=== PATIENT | male | born 1975 | race Caucasian/White ===

== ENCOUNTER 2019-04-30 07:06 | Emergency (ER) | payer OTHER ==
--- NOTE | 2019-04-30 08:11 | CR ---
[id number] RAD/RAD Elbow Left 3V Min EXAM: RAD Elbow Left 3V Min CLINICAL DATA: TRAUMA COMPARISON: NO PREVIOUS SIMILAR EXAM IS AVAILABLE. FINDINGS: A widely diastatic ulnar olecranon fracture is seen with articular involvement. IMPRESSION: DIASTATIC PROXIMAL ULNAR FRACTURE Deandre Blackwood MD 04/30/19 [id number] Thank you for allowing us to participate in the care of your patient.
--- NOTE | 2019-04-30 08:28 | EDM.PDOC ---
ED HPI GENERAL MEDICAL PROBLEM - General Chief Complaint: Upper Extremity Injury/Pain Stated Complaint: fell and hurt left elbow Time Seen by Provider: 04/30/19 08:13 Source of Information: Reports: Patient History Limitations: Reports: No Limitations - History of Present Illness INITIAL COMMENTS - FREE TEXT/NARRATIVE: Patient is a 44-year-old gentleman who presents to the emergency department this morning via private vehicle with a complaint of left elbow pain. Patient states just prior to presentation he slipped on ice landing on his left elbow. Patient denies head injury, loss of conscious, neck pain, shoulder pain, wrist pain, or back pain. 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 [No Known Home Meds] 04/30/19 [History] Past Medical History HEENT History: Reports: None Cardiovascular History: Reports: None Respiratory History: Reports: None Gastrointestinal History: Reports: None Genitourinary History: Reports: None Musculoskeletal History: Reports: None Neurological History: Reports: None Psychiatric History: Reports: None Endocrine/Metabolic History: Reports: None Hematologic History: Reports: None Immunologic History: Reports: None Oncologic (Cancer) History: Reports: None Dermatologic History: Reports: None - Past Surgical History Head Surgeries/Procedures: Reports: None HEENT Surgical History: Reports: None Cardiovascular Surgical History: Reports: None GI Surgical History: Reports: Hernia Repair/Other Male Surgical History: Reports: None Neurological Surgical History: Reports: None Musculoskeletal Surgical History: Reports: None Social & Family History - Tobacco Use Smoking Status *Q: Never Smoker Second Hand Smoke Exposure: No - Caffeine Use Caffeine Use: Reports: Soda - Alcohol Use Days Per Week of Alcohol Use: 1 Number of Drinks Per Day: 3 Total Drinks Per Week: 3 - Recreational Drug Use Recreational Drug Use: No Review of Systems - Review of Systems Review Of Systems: Comprehensive ROS is negative, except as noted in HPI. Constitutional: Reports: No Symptoms Eyes: Reports: No Symptoms Ears: Reports: No Symptoms Nose: Reports: No Symptoms Mouth/Throat: Reports: No Symptoms Respiratory: Reports: No Symptoms Cardiovascular: Reports: No Symptoms GI/Abdominal: Reports: No Symptoms Genitourinary: Reports: No Symptoms Musculoskeletal: Reports: Arm Pain (Left elbow) Skin: Reports: No Symptoms Neurological: Reports: No Symptoms Psychiatric: Reports: No Symptoms ED EXAM, GENERAL - Physical Exam Exam: See Below Exam Limited By: No Limitations General Appearance: Alert, WD/WN, No Apparent Distress Throat/Mouth: Normal Inspection, Normal Oropharynx, No Airway Compromise Head: Atraumatic, Normocephalic Neck: Normal Inspection, Supple, Non-Tender, Full Range of Motion Respiratory/Chest: No Respiratory Distress Back Exam: Normal Inspection, Full Range of Motion Extremities: Arm Pain (Left elbow posterior aspect with mild edema. No ecchymosis or obvious deformity noted. No shoulder or wrist involvement.) Neurological: Alert, Oriented, CN II-XII Intact, Normal Cognition, No Motor/ Sensory Deficits Psychiatric: Normal Affect, Normal Mood Skin Exam: Warm, Dry, Intact, Normal Color, No Rash ED TRAUMA EXTREMITY PROCEDURES - Splinting Left Upper Extremity Pre-Procedure NV Status: Normal Post-Procedure NV Status: Normal Splint Material: Fiberglass Splint Design: Posterior Applied & Form Fitted By: Provider Provider Post-Splint Application NV Check: NV Status Normal Complications: No Course - Vital Signs Last Recorded V/S: Last Vital Signs Temp 97.7 F 04/30/19 07:10 Pulse 86 04/30/19 07:10 Resp 18 04/30/19 07:10 BP 133/80 04/30/19 07:10 Pulse Ox 98 04/30/19 07:10 - Radiology Interpretation Free Text/Narrative:: Right elbow, proximal ulnar fracture - Re-Assessments/Exams Free Text/Narrative Re-Assessment/Exam: 04/30/19 08:28 Patient afebrile, vital signs stable, tolerated splinting procedure well. Discussed case with Dr. Tellez, orthopedic surgery at [facility]. He would like to see the patient in the [facility] tomorrow and then will set up surgical date later on in the week. Departure - Departure Time of Disposition: 08:31 Disposition: Home, Self-Care 01 Condition: Good Clinical Impression: Fracture of ulna Qualifiers: Encounter type: initial encounter Ulna location: proximal ulna Fracture type: closed Fracture morphology: unspecified fracture morphology Laterality: left Qualified Code(s): S52.002A - Unspecified fracture of upper end of left ulna, initial encounter for closed fracture - Discharge Information Instructions: Cast or Splint Care, Adult, [id number], Ulnar Fracture Referrals: PCP,None [Primary Care Provider] - Additional Instructions: Follow-up with Dr. Tellez, orthopedic surgeon at [facility] tomorrow. [address] [facility]. [phone] Sepsis Event Note - Evaluation Sepsis Screening Result: No Definite Risk - Focused Exam Vital Signs: Vital Signs Temp Pulse Resp BP Pulse Ox 04/30/19 07:10 97.7 F 86 18 133/80 98 Date Exam was Performed: 04/30/19 Time Exam was Performed: 08:15 - Assessment/Plan Assessment:: Left ulnar fracture Plan: Follow-up orthopedic tomorrow
[2019-04-30] MEDS ORDERED: Acetaminophen/oxyCODONE 325-5 MG Tab PO ONE (08:34)
== END 2019-04-30 08:50 | disposition home or self-care (01) ==
LOC: KA.ED 07:06
DX: S52.022A Displaced fracture of olecranon process without intraarticular extension of left ulna, initial encounter for closed fracture (principal); W00.0XXA Fall on same level due to ice and snow, initial encounter
CPT/HCPCS: 29105; 73080-LT; 99283-25

== ENCOUNTER 2024-06-17 09:06 | Emergency (ER) | payer BC ==
[2024-06-17 09:36] LABS: BASOPHILS ABSOLUTE AUTO 0.02 10^3/uL (0.00-0.10); BASOPHILS PERCENT AUTO 0.3 % (0.0-1.0); EOSINOPHILS ABSOLUTE AUTO 0.09 10^3/uL (0.10-0.30); EOSINOPHILS PERCENT AUTO 1.2 % (1.0-3.0); HEMOGLOBIN 15.5 g/dL (13.0-17.0); IMMATURE GRAN ABSOLUTE AUTO 0.02 10^3/uL (0.00-0.04); IMMATURE GRAN PERCENT AUTO 0.3 % (0.0-0.4); LYMPHOCYTES ABSOLUTE AUTO 1.21 10^3/uL (1.00-4.00); LYMPHOCYTES PERCENT AUTO 16.2 % (20.0-40.0); MEAN CORPUSCULAR HEMOGLOBIN 30.1 pg (27.0-31.0); MEAN CORPUSCULAR HGB CONC 34.4 g/dL (32.0-36.0); MEAN CORPUSCULAR VOLUME 87.4 fL (82.0-92.0); MEAN PLATELET VOLUME 8.6 fL (7.4-10.4); MONOCYTES ABSOLUTE AUTO 0.71 10^3/uL (0.10-0.80); MONOCYTES PERCENT AUTO 9.5 % (2.0-8.0); NEUTROPHILS ABSOLUTE AUTO 5.42 10^3/uL (2.50-7.00); NEUTROPHILS PERCENT AUTO 72.5 % (50.0-70.0); PLATELET COUNT,PLT 213 10^3/uL (150-400); RED BLOOD CELL COUNT 5.15 10^6/uL (4.50-6.00); RED CELL DISTRIBUTION WIDTH 12.2 % (11.5-14.5); WHITE BLOOD CELL COUNT,WBC 7.47 10^3/uL (5.00-10.00)
[2024-06-17 09:53] LABS: ALBUMIN 3.74 g/dL (3.40-5.00); ANION GAP 12.6 mmol/L (5-15); BILIRUBIN TOTAL 0.5 mg/dL (0.2-1.0); CALCIUM 8.6 mg/dL (8.7-10.3); CARBON DIOXIDE,CO2 28.4 mmol/L (21.0-32.0); CREATININE 1.01 mg/dL (0.51-1.17); EST CRCL DRUG DOSING (CG) 90.35 mL/min; PROTEIN TOTAL,TP 7.4 g/dL (6.4-8.2)
[2024-06-17] MEDS: Albuterol/Ipratropium 3.0-0.5 MG/3 ML Neb Soln NEB ONE ×2 (10:10→10:35)
[2024-06-17] MEDS: methylPREDNISolone Sodium Succinate 125 MG/2 ML SDV IVPUSH ONE (10:36)
== END 2024-06-17 11:00 | disposition home or self-care (01) ==
LOC: KA.ED 09:06
DX: J40 Bronchitis, not specified as acute or chronic (principal); Z91.048 Other nonmedicinal substance allergy status; Z79.51 Long term (current) use of inhaled steroids; Z91.09 Other allergy status, other than to drugs and biological substances
CPT/HCPCS: 36415; 71046; 80053; 85025; 87040; 96374; 99284; 99284-25; A9270-GY; J2919